=== PATIENT | female | born 1975 | race Caucasian/White ===

== ENCOUNTER 2021-11-25 19:38 | Emergency (ER) | payer SELFPAY ==
[~2021-11-25] VITALS: Ht 154.9 cm; Wt 68.7 kg
[2021-11-25] MEDS ORDERED: IBUP-2028 MT (23:40)
[2021-11-25] MEDS ORDERED: KETOROLAC 60MG/2ML VIAL IM ONE (23:45)
[2021-11-25 23:56] VITALS: BP 134/84
== END 2021-11-25 23:59 | disposition home or self-care (01) ==
LOC: ER 19:38
DX: R51.9 Headache, unspecified (principal); F17.200 Nicotine dependence, unspecified, uncomplicated
CPT/HCPCS: 96372; 99283; J1885